=== PATIENT | male | born 2000 | race Caucasian/White ===

== ENCOUNTER 2022-01-23 15:01 | Emergency (ER) | payer OTHER ==
[2022-01-23] MEDS ORDERED: Sodium Chloride 0.9% 1000 ML 1,000 ML IV STA ×2 (15:29→17:26)
[2022-01-23] MEDS ORDERED: Zofran 4 MG/2 ML VIAL IV ONE (16:03)
[2022-01-23] MEDS ORDERED: Sodium Chloride 0.9% 1000 ML 1,000 ML ONE ×2 (16:03→17:24)
[2022-01-23 16:05] LABS: ALBUMIN 4.9 g/dL (3.5-5.0); ALKALINE PHOSPHATASE 80 U/L (38-126); ANION GAP 13.9 MEQ/L (5-15); BLOOD UREA NITROGEN 13 mg/dL (9-20); CHLORIDE 96 mmol/L (98-107); Calcium 9.5 mg/dL (8.4-10.2); Carbon Dioxide 28 mmol/L (22-30); Creatinine 1 1.17 mg/dL (0.66-1.25); EST GLOMERULAR FILTRATION RATE > 60.0 ML/MIN; Glucose 102 mg/dL (74-106); Potassium 4.2 mmol/L (3.5-5.1); SGOT/AST 100 U/L (17-59); SGPT/ALT 69 U/L (0-50); SODIUM 133 mmol/L (137-145); Total Protein 8.1 g/dL (6.3-8.2)
[2022-01-23] MEDS ORDERED: Zofran 4 MG/2 ML VIAL ONE (16:05)
[2022-01-23] MEDS ORDERED: TORAdol 30 mg Injection ONE (16:08)
[2022-01-23] MEDS ORDERED: TORAdol 30 mg Injection IV ONE (16:09)
[2022-01-23 16:13] LABS: Absolute Neutrophil Ct (ANC) 4.51 x10^3/uL (1.4-6.9); Basophil (Absolute #) 0.03 x10^3/uL (0-0.4); Eosinophil % 1.1 % (0.00-5.0); Eosinophil (Absolute #) 0.06 x10^3/uL (0-0.5); Hematocrit 42.9 % (42-50); Hemoglobin 13.9 g/dL (12.5-18.0); Lymphocyte (Absolute #) 0.28 x10^3/uL (1.0-4.6); Lymphocytes % 5.2 % (24.0-44.0); Mean Cell Volume 85.1 fL (78-100); Mean Corpuscular Hemoglobin 27.6 pg (26-32); Mean Corpuscular Hgb Concent. 32.4 g/dL (32-36); Mean Platelet Volume 10.9 fL (7.5-11.0); Monocyte (Absolute #) 0.54 x10^3/uL (0.0-1.3); Monocytes % 9.9 % (0.0-12.0); Platelet Count 181 x10^3/uL (150-450); Red Blood Count 5.04 x10^6/uL (4.1-5.6); Red Cell Distribution Width 12.1 % (11.5-14.0); White Blood Count 5.4 x10^3/uL (4.0-10.5)
--- NOTE | 2022-01-23 16:22 | XRAY ---
Exam: AP upright portable chest film from 01/23/2022. Comparison: [None.] Indication: 21-year-old male with shortness of breath, cough, vomiting; rule out pneumonia. Findings: The film was obtained in a mildly lordotic projection. A couple EKG leads are seen. The heart size and contour are normal. The lul and mediastinal structures appear unremarkable. The lungs are adequately expanded. I cannot exclude a small calcified granuloma behind the heart at the medial left lung base. No air space infiltrates, vascular congestion, pneumothorax, or pleural fluid is seen. No acute osseous process is seen. Impression: 1. No air space infiltrates to suggest focal pneumonia or other acute cardiopulmonary disease is seen.
[2022-01-23 17:14] VITALS: BP 112/58; O2SAT 96
--- NOTE | 2022-01-23 17:25 | ERPHSYRPT ---
- History of Present Illness Time Seen by Provider: 01/23/22 15:20 Source: patient Exam Limitations: no limitations Patient Subjective Stated Complaint: PT HERE FOR VOMITING, ACHES,AND FEVER FOR 3 DAYS , WAS DX WITH COVID YESTERDAY, Triage Nursing Assessment: PT ALERT, RESP EASY, FACE MASK IN PLACE, NO COUGH, SKIN W/D/P. NO EDEMA, MOVES ALL EXT WELL Physician History: Patient is a 21-year-old male presents to our ED for evaluation. Patient is COVID-positive. Patient has been experiencing nausea vomiting and diarrhea [place] for the past 3 days. Patient tested positive for COVID yesterday. Patient has generalized body aches. Patient feels generalized weakness. Symptoms are progressive. Symptoms are moderate in intensity. No specific worsening improving factors. Patient is otherwise healthy. He voices no other complaints or concerns at this time. Portions of this note were created with voice recognition technology. There may be grammatical, spelling, punctuation or sound alike errors Timing/Duration: day(s) (3 days) Severity: moderate Modifying Factors: Improves With: nothing Allergies/Adverse Reactions: Penicillins Allergy (Verified 01/23/22 15:27) Home Medications: Unobtainable 01/23/22 [History] Hx Tetanus, Diphtheria Vaccination/Date Given: No Hx Influenza Vaccination/Date Given: No Hx Pneumococcal Vaccination/Date Given: No Immunizations Up to Date: Yes Travel Risk - International Travel Have you traveled outside of the country in past 3 weeks: No - Coronavirus Screening Are you exhibiting any of the following symptoms?: Yes Symptoms: Fever, Vomiting/Diarrhea, Headaches/Body Aches/Fatigue - Vaccine Status Have you recieved a Covid-19 vaccination: No - Review of Systems Constitutional: No Symptoms, No Fever, No Chills Eyes: No Symptoms Ears, Nose, & Throat: No Symptoms Respiratory: No Symptoms, No Cough, No Dyspnea Cardiac: No Symptoms, No Chest Pain, No Edema, No Syncope Abdominal/Gastrointestinal: No Symptoms, No Abdominal Pain, No Nausea, No Vomiting, No Diarrhea Genitourinary Symptoms: No Symptoms, No Dysuria Musculoskeletal: No Symptoms, No Back Pain, No Neck Pain Skin: No Symptoms, No Rash Neurological: No Symptoms, No Dizziness, No Focal Weakness, No Sensory Changes Psychological: No Symptoms Endocrine: No Symptoms Hematologic/Lymphatic: No Symptoms Immunological/Allergic: No Symptoms All Other Systems: Reviewed and Negative - Past Medical History Pertinent Past Medical History: Yes Cardiac History: High Cholesterol, Hypertension, Myocardial Infarction (CA) Respiratory History: Other GI Medical History: Other Other Medical History: liver and lung problems unsure of what - Past Surgical History Past Surgical History: No - Social History Smoking Status: Never smoker Exposure to second hand smoke: No Drug Use: none Patient Lives Alone: No - Nursing Vital Signs Nursing Vital Signs: Initial Vital Signs Temperature 97.2 F 01/23/22 15:05 Pulse Rate 122 H 01/23/22 15:05 Respiratory Rate 22 01/23/22 15:05 Blood Pressure 140/96 01/23/22 15:05 O2 Sat by Pulse Oximetry 98 01/23/22 15:05 Pain Scale Pain Intensity 3 - Physical Exam General Appearance: no apparent distress, alert Eye Exam: PERRL/EOMI, eyes nml inspection Ears, Nose, Throat Exam: normal ENT inspection, TMs normal, pharynx normal, other (Dry oral mucous membranes) Neck Exam: normal inspection, non-tender, supple, full range of motion Respiratory Exam: normal breath sounds, lungs clear, airway intact, No respiratory distress Cardiovascular Exam: regular rate/rhythm, normal heart sounds, normal peripheral pulses Gastrointestinal/Abdomen Exam: soft, normal bowel sounds, No tenderness, No mass Back Exam: normal inspection, normal range of motion, No CVA tenderness, No vertebral tenderness Extremity Exam: normal inspection, normal range of motion, pelvis stable Neurologic Exam: alert, oriented x 3, cooperative, normal mood/affect, nml cerebellar function, nml station & gait, sensation nml, No motor deficits Skin Exam: normal color, warm, dry, No rash Lymphatic Exam: No adenopathy SpO2 Interpretation: normal SpO2: 96 O2 Delivery: Room Air - Course Nursing assessment & vital signs reviewed: Yes EKG Interpreted by Me: RATE (126), Sinus Tach, NORMAL AXIS, NORMAL INTERVALS - Radiology Exams Chest X-ray Interpretation: Teleradiologist Report (Chest x-ray negative for acute pathology.) Ordered Tests: Active Orders 24 hr Category Date Time Status Telephone Operator Receptionist STAT Care 01/23/22 15:29 Active EKG-ER Only STAT Care 01/23/22 15:29 Active IV Insertion STAT Care 01/23/22 15:29 Active Pulse Oximetry (ED) STAT Care 01/23/22 15:29 Active CHEST 1 VIEW (PORTABLE) Stat Exams 01/23/22 15:29 Completed BLOOD CULTURE Stat Lab 01/23/22 15:45 Received CBC W DIFF Stat Lab 01/23/22 15:10 Completed CMP Stat Lab 01/23/22 15:10 Completed Lactic Acid Stat Lab 01/23/22 15:29 Completed TROPONIN Q4H Lab 01/23/22 15:10 Completed TROPONIN Q4H Lab 01/23/22 19:30 Ordered TROPONIN Q4H Lab 01/23/22 23:30 Ordered UA W/RFX CULTURE Stat Lab 01/23/22 Ordered Medication Summary Generic Name Dose Route Start Last Admin Trade Name Freq PRN Reason Stop Dose Admin Sodium Chloride 1,000 mls @ 999 mls/hr 01/23/22 17:26 01/23/22 17:26 Sodium Chloride 0.9% 1000 Ml IV 01/23/22 18:26 999 mls/hr .Q1H1M STA Administration Discontinued Medications Generic Name Dose Route Start Last Admin Trade Name Freq PRN Reason Stop Dose Admin Sodium Chloride 1,000 mls @ 999 mls/hr 01/23/22 15:29 01/23/22 17:06 Sodium Chloride 0.9% 1000 Ml IV 01/23/22 16:29 Infused .Q1H1M STA Infusion Sodium Chloride Confirm 01/23/22 16:03 Sodium Chloride 0.9% 1000 Ml Administered 01/23/22 16:04 Dose 1,000 mls @ ud .ROUTE .STK-MED ONE Sodium Chloride Confirm 01/23/22 17:24 Sodium Chloride 0.9% 1000 Ml Administered 01/23/22 17:25 Dose 1,000 mls @ ud .ROUTE .STK-MED ONE Ketorolac Tromethamine 30 mg 01/23/22 16:09 01/23/22 16:10 Ketorolac Tromethamine 30 Mg/Ml Inj IV 01/23/22 16:10 30 mg STAT ONE Administration Ketorolac Tromethamine Confirm 01/23/22 16:08 Ketorolac Tromethamine 30 Mg/Ml Inj Administered 01/23/22 16:09 Dose 30 mg .ROUTE .STK-MED ONE Ondansetron HCl 4 mg 01/23/22 16:03 01/23/22 16:05 Ondansetron Hcl 4 Mg/2 Ml Vial IV 01/23/22 16:04 4 mg STAT ONE Administration Ondansetron HCl Confirm 01/23/22 16:05 Ondansetron Hcl 4 Mg/2 Ml Vial Administered 01/23/22 16:06 Dose 4 mg .ROUTE .STK-MED ONE Lab/Rad Data: Laboratory Result Diagrams 01/23/22 15:10 01/23/22 15:10 Laboratory Results 01/23/22 01/23/22 01/23/22 Range/Units 15:29 15:10 15:10 WBC (4.0-10.5) x10^3/uL RBC (4.1-5.6) x10^6/uL Hgb (12.5-18.0) g/dL Hct (42-50) % MCV (78-100) fL MCH (26-32) pg MCHC (32-36) g/dL RDW (11.5-14.0) % Plt Count (150-450) x10^3/uL MPV (7.5-11.0) fL Gran % (36.0-66.0) % Immature Gran % (Auto) (0.00-0.4) % Nucleat RBC Rel Count (0.00-0.1) % Eos # (Auto) (0-0.5) x10^3/uL Immature Gran # (Auto) (0.00-0.03) x10^3u/L Absolute Lymphs (auto) (1.0-4.6) x10^3/uL Absolute Monos (auto) (0.0-1.3) x10^3/uL Absolute Nucleated RBC (0.00-0.01) x10^3u/L Lymphocytes % (24.0-44.0) % Monocytes % (0.0-12.0) % Eosinophils % (0.00-5.0) % Basophils % (0.0-0.4) % Absolute Granulocytes (1.4-6.9) x10^3/uL Basophils # (0-0.4) x10^3/uL Sodium 133 L (137-145) mmol/L Potassium 4.2 (3.5-5.1) mmol/L Chloride 96 L (98-107) mmol/L Carbon Dioxide 28 (22-30) mmol/L Anion Gap 13.9 (5-15) MEQ/L BUN 13 (9-20) mg/dL Creatinine 1.17 (0.66-1.25) mg/dL Estimated GFR > 60.0 ML/MIN Glucose 102 (74-106) mg/dL Lactic Acid 1.8 (0.4-2.0) Calcium 9.5 (8.4-10.2) mg/dL Total Bilirubin 1.00 (0.2-1.3) mg/dL AST 100 H (17-59) U/L ALT 69 H (0-50) U/L Alkaline Phosphatase 80 (38-126) U/L Troponin I < 0.012 (0.000-0.034) ng/mL Serum Total Protein 8.1 (6.3-8.2) g/dL Albumin 4.9 (3.5-5.0) g/dL 01/23/22 Range/Units 15:10 WBC 5.4 (4.0-10.5) x10^3/uL RBC 5.04 (4.1-5.6) x10^6/uL Hgb 13.9 (12.5-18.0) g/dL Hct 42.9 (42-50) % MCV 85.1 (78-100) fL MCH 27.6 (26-32) pg MCHC 32.4 (32-36) g/dL RDW 12.1 (11.5-14.0) % Plt Count 181 (150-450) x10^3/uL MPV 10.9 (7.5-11.0) fL Gran % 83.0 H (36.0-66.0) % Immature Gran % (Auto) 0.2 (0.00-0.4) % Nucleat RBC Rel Count 0.0 (0.00-0.1) % Eos # (Auto) 0.06 (0-0.5) x10^3/uL Immature Gran # (Auto) 0.01 (0.00-0.03) x10^3u/L Absolute Lymphs (auto) 0.28 L (1.0-4.6) x10^3/uL Absolute Monos (auto) 0.54 (0.0-1.3) x10^3/uL Absolute Nucleated RBC 0.00 (0.00-0.01) x10^3u/L Lymphocytes % 5.2 L (24.0-44.0) % Monocytes % 9.9 (0.0-12.0) % Eosinophils % 1.1 (0.00-5.0) % Basophils % 0.6 (0.0-0.4) % Absolute Granulocytes 4.51 (1.4-6.9) x10^3/uL Basophils # 0.03 (0-0.4) x10^3/uL Sodium (137-145) mmol/L Potassium (3.5-5.1) mmol/L Chloride (98-107) mmol/L Carbon Dioxide (22-30) mmol/L Anion Gap (5-15) MEQ/L BUN (9-20) mg/dL Creatinine (0.66-1.25) mg/dL Estimated GFR ML/MIN Glucose (74-106) mg/dL Lactic Acid (0.4-2.0) Calcium (8.4-10.2) mg/dL Total Bilirubin (0.2-1.3) mg/dL AST (17-59) U/L ALT (0-50) U/L Alkaline Phosphatase (38-126) U/L Troponin I (0.000-0.034) ng/mL Serum Total Protein (6.3-8.2) g/dL Albumin (3.5-5.0) g/dL - Progress Progress: improved Progress Note: 01/23/22 17:34 Patient reassessed. He feels well. Headache resolved. Myalgias resolved. No nausea vomiting or diarrhea in our ED. Patient was dehydrated based on physical exam. Mild hyponatremia. Patient received 2 L of IV fluids. Tachycardia resolved. He states he is ready for discharge. Will discharge home. Patient agrees to follow-up with primary care doctor within 48 hours for evaluation. Portions of this note were created with voice recognition technology. There may be grammatical, spelling, punctuation or sound alike errors Counseled pt/family regarding: lab results, diagnosis, need for follow-up, rad results - Departure Departure Disposition: Home Clinical Impression: COVID, Hyponatremia, Liver enzyme elevation, Dehydration Condition: Stable Critical Care Time: No Referrals: DOCTOR,NO FAMILY [Primary Care Provider] - Follow up/PCP as directed DWAYNE KNIGHT MD [ACTIVE STAFF] - Follow up/PCP as directed Instructions: COVID-19 (DC) Additional Instructions: Discharge/Care Plan AMINAH DIAZ MAIK ZARCO was seen on 01/23/22 in the Emergency Room. The patient was counseled regarding Diagnosis,Lab results, Imaging studies, need for follow up and when to return to the Emergency Room. Prescriptions given: Discharge Note I have spoken with the patient and/or caregivers. I have explained the patient's condition, diagnosis and treatment plan based on the information available to me at this time. I have answered the patient's and/or caregiver's questions and addressed any concerns. The patient and/or caregivers have as good understanding of the patient's diagnosis, condition and treatment plan as can be expected at this point. The vital signs have been stable. The patient's condition is stable and appropriate for discharge from the emergency department. The patient will pursue further outpatient evaluation with the primary care physician or other designated or consulting physician as outlined in the discharge instructions. The patient and/or caregivers are agreeable to this plan of care and follow-up instructions have been explained in detail. The patient and/or caregivers have received these instruction. The patient/and or caregivers are aware that any significant change in condition or worsening of symptoms should prompt an immediate return to this or the closest emergency department or call 911.
[2022-01-23 17:55] LABS: Appearance CLEAR (CLEAR); Bilirubin NEGATIVE (NEGATIVE); Dipstick done @ ? MAIN LAB; Glucose NEGATIVE (NEGATIVE); Ketones NEGATIVE (NEGATIVE); Nitrite NEGATIVE (NEGATIVE); Ph 6.5 (5-6); Protein,Urine Dip TRACE (Negative); RBC NEGATIVE Ery/ul (0-5); Urobilinogen 0.2 mg/dL (0-1)
[2022-01-23 17:56] LABS: Epithelial Cells RARE /HPF (FEW); Mucus SLIGHT /HPF (NEGATIVE); RBC 0-2 /HPF (0-2); WBC 0-2 /HPF (0-5)
[2022-01-23 17:57] LABS: Bacteria NONE SEEN /HPF (NEGATIVE); Urine Cultured Indicated? NO
[2022-01-23 18:27] VITALS: PULSE 100
== END 2022-01-23 18:32 | disposition home or self-care (01) ==
LOC: ED 15:01
DX: U07.1 COVID-19 (principal); E87.1 Hypo-osmolality and hyponatremia; E86.0 Dehydration; R74.8 Abnormal levels of other serum enzymes; R11.2 Nausea with vomiting, unspecified; R19.7 Diarrhea, unspecified; M79.10 Myalgia, unspecified site; R53.1 Weakness; E78.5 Hyperlipidemia, unspecified; I10 Essential (primary) hypertension; Z28.310 Unvaccinated for COVID-19
CPT/HCPCS: 36000; 36415; 71045; 80053; 81015; 83605; 84484; 85025; 87040; 93005; 93041; 94760; 96374; 96375; 99284; J1885; J2405